=== PATIENT | male | born 1940 | race Caucasian/White ===

== ENCOUNTER 2020-10-19 14:50 | Outpatient (CLI) | payer MEDICARE, OTHER, SELFPAY | END 2020-10-19 14:51 | disposition home or self-care (01) | LOC: ANHCOVIDVC 14:50 | PROVIDERS: PCP Family Medicine | DX: Z23 Encounter for immunization (principal) | CPT/HCPCS: 0001A; 91300 ==

== ENCOUNTER → 2022-02-16 10:05 | Outpatient (CLI) | payer MEDICARE, SELFPAY ==
--- NOTE | ~2022-02-16 | XR_ITS ---
XR chest 2V 02/16/2022 10:27 Indication: Acute bronchitis Procedure: 2 view chest Comparison: No prior studies for comparison. Findings: There is subtle bilateral perihilar and bibasilar airspace disease. No significant effusion . Heart size normal. There is atherosclerosis. No pneumothorax identified. Impression: 1: Bilateral perihilar and bibasilar airspace disease which may represent edema or pneumonia. Reviewed, dictated and finalized at location A. Impression: 1: Bilateral perihilar and bibasilar airspace disease which may represent edema or pneumonia.
== END ==
PROVIDERS: PCP Family Medicine; Visit Provider Family Medicine
DX: J20.9 Acute bronchitis, unspecified (principal); R91.8 Other nonspecific abnormal finding of lung field
CPT/HCPCS: 71046

== ENCOUNTER 2023-10-29 10:57 | Emergency (ER) | payer MEDICARE, SELFPAY ==
[2023-10-29] VITALS (11 sets, daily range): BP systolic 119–144; BP diastolic 57–71; PULSE 76–80; RESP 16–20; TEMP 36.4–36.6; O2SAT 96–99
--- NOTE | ~2023-10-29 | XR_ITS ---
Clinical Indication: Cough PA and lateral views of the chest: Comparison: 02/16/2022 Findings: The lungs are clear, without evidence of focal consolidation or pleural effusion. Cardiome diastinal silhouette is within normal limits. Bones and soft tissues are unremarkable. Impression: Normal chest. Reviewed, dictated and finalized at location . Impression: Normal chest.
--- NOTE | ~2023-10-29 | CT_ITS ---
EXAMINATION: CT brain wo con DATE: 10/29/2023 13:57 INDICATION: Confusion. Weakness. TECHNIQUE: Computed tomography (CT) of the head was performed without intravenous contrast. The mA wa s adjusted according to patient size. Iterative reconstruction technique was employed. Exam dose: 75 6.67 mGy-cm total exam DLP. COMPARISON: None FINDINGS: There is central and cortical cerebral and cerebellar volume loss. No intracranial mass lesion or hemorrhage, cerebrovascular accident, midline shift or mass effect is noted. Bilateral vertebral artery calcifications. Prominent bilateral carotid siphon internal carotid artery calcifications. There is nonspecific diminished attenuation of the cerebral white matter, likely due to chronic small vessel ischemic changes. No subdural or epidural hematoma. Patchy soft tissue thickening the ethmoid air cells is noted bilaterally. The mastoid air cells are w ell-developed and aerated. No fracture or bone destruction of the cranial vault. IMPRESSION: Cerebral and cerebellar volume loss Cerebral atherosclerosis and chronic small vessel ischemic changes of the cerebral white matter No acute intracranial finding Reviewed, dictated and finalized at Location A. Reviewed, dictated and finalized at location B. IMPRESSION: Cerebral and cerebellar volume loss Cerebral atherosclerosis and chronic small vessel ischemic changes of the cereb ral white matter No acute intracranial finding
--- NOTE | 2023-10-29 11:04 | ECG_ITS ---
Measurements Intervals [place] Rate: 75 P: 38 MO: 170 QRS: -35 QRSD: 91 T: 74 QT: 360 QTc: 403 Interpretive Statements SINUS RHYTHM LEFT AXIS DEVIATION ANTEROSEPTAL INFARCT, AGE INDETERMINATE BORDERLINE ST-T WAVE ABNORMALITY- HIGH LATERAL LEADS BASELINE WANDER- II, III, AVR, AVL, AVF, V1-V2, V5-V6 ABNORMAL ECG NO PREVIOUS ECG AVAILABLE FOR COMPARISON Electronically Signed On 10-29-2023 13:27:43 CDT by Jon Arcos D.O.
[2023-10-29 11:39] LABS: Basophils Absolute Auto 0.1 K/mm3 (0.0-0.1); Basophils Percent Auto 0.8 % (0.2-1.2); Eosinophils Absolute Auto 0.3 K/mm3 (0-0.3); Eosinophils Percent Auto 4.1 % (0-4.4); Hematocrit 46.8 % (42.0-52.0); Hemoglobin 15.8 g/dL (14.0-18.0); Immature Granulocyte Absolute 0.03 K/mm3 (0.00-0.031); Immature Granulocyte Percent A 0.5 % (0-0.5); Lymphocytes Absolute Auto 1.29 K/mm3 (0.9-3.2); Lymphocytes Percent Auto 19.7 % (18.3-44.2); Mean Corpuscular HGB Conc 33.8 g/dl (32-36); Mean Corpuscular Hemoglobin 30.8 pg (26-34); Mean Corpuscular Volume 91.2 fl (80-100); Mean Platelet Volume 9.8 fl (7.4-10.4); Monocytes Absolute Auto 0.5 K/mm3 (0.1-0.6); Neutrophils Absolute Auto 4.4 K/mm3 (1.3-6.7); Neutrophils Percent Auto 66.9 % (45.5-73.1); Platelet Count Result 208 k/mm3 (150-375); Red Blood Count 5.13 M/mm3 (4.6-6.20); White Blood Count 6.5 K/mm3 (4.5-10.0)
--- NOTE | 2023-10-29 13:08 | ED.GENADULT ---
HPI - General Adult General Chief complaint: Shortness of Breath/Dyspnea <Kandice Marie December, [employer] - Last Filed: 10/29/23 13:19> Stated complaint: cough, wheezing, weakness <Kandice Marie December, ME[employer] - Last Filed: 10/29/23 13:19> Time Seen by Provider: 10/29/23 13:08 <Kandice Marie December, ME[employer] - Last Filed: 10/29/23 13:19> Focused HPI: Renard Monsalve is an 82 y/o male who presents with family. Family states that he was well in his normal state of health Sunday - he worked out at the gym with his . He went out to eat with family and started coughing a lot and then he became progressively weakened and needed help walking out of the restaurant. His states that over the weekend he has had worsening generalized weakness and coughing. also states she has noticed some intermittent confusion since about July is also wanting to make sure he doesn't have a pulmonary embolism GENERAL: well-nourished, and in no acute distress. HEAD: Normocephalic, atraumatic. CHEST: Clear to auscultation. ?No respiratory distress. HEART: Regular rate and rhythm.? NEURO: ?Alert and oriented x3. Patient screened in triage and initial orders placed.? ?Additional care and disposition to be based upon?diagnostic testing and treatment. <Kandice Marie December, ME[employer] - Last Filed: 10/29/23 13:19> History of Present Illness HPI narrative: Patient is an 82-year-old male who presents ER with shortness of breath. Intermittent for the last 3 months. Worsened over last 3 days after he opened a bag of fertilizer and spread across his yd. Nonproductive cough. Has some tightness related to this in his chest. No fevers or chills or sweats. <Júnior Ordaz MD - Last Filed: 10/29/23 18:31> Related Data Allergies/adverse reactions: Allergies Allergy/AdvReac Type Severity Reaction Status Date / Time No Known Allergies Allergy Verified 10/29/23 15:50 <Kandice Marie December, ME[employer] - Last Filed: 10/29/23 13:19> Review of Systems Review of Systems: All systems reviewed & are unremarkable except as noted in HPI and below <Júnior Ordaz MD - Last Filed: 10/29/23 18:31> Constitutional: Constitutional: Denies chills, Denies fever(s) and Denies frequent falls <Júnior Ordaz MD - Last Filed: 10/29/23 18:31> ENT: Reports system reviewed and no additional complaints, except as documented <Júnior Ordaz MD - Last Filed: 10/29/23 18:31> Cardiovascular: Cardiovascular: Reports no additional cardiovascular complaints <Júnior Ordaz MD - Last Filed: 10/29/23 18:31> Respiratory: Respiratory: Denies chest congestion, Reports cough, Reports dyspnea and Reports wheezing <Júnior Ordaz MD - Last Filed: 10/29/23 18:31> Gastrointestinal: Gastrointestinal: Reports no additional gastrointestinal complaints <Júnior Ordaz MD - Last Filed: 10/29/23 18:31> Musculoskeletal: Musculoskeletal: Reports no additional musculoskeletal complaints <Júnior Ordaz MD - Last Filed: 10/29/23 18:31> [facility] Past Medical History Medical History: Medical History (Updated 10/29/23 @ 18:23 by Júnior Ordaz MD) Abnormal fasting glucose glucose 90 with hemoglobin A1c 5.3 on 10/13/2020. The patient's fasting glucose was 99 with hemoglobin A1c 5.3 on 02/01/2022. 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 Recheck in 3 years. COVID (02/11/22) Evaluated in the ER on 02/17/2022 with pneumonia and positive COVID test. Treated with doxycycline. Gastro-esophageal reflux disease without esophagitis Obesity (BMI 30.0-34.9) Obstructive sleep apnea Pharyngitis (02/10/22) Two COVID test were negative. <Kandice Aviles APRN - Last Filed: 10/29/23 13:19> Family History Family History: Family History (Updated
[2023-10-29 13:52] LABS: Influenza A QL RT-PCR Negative (Negative); Influenza B QL RT-PCR Negative (Negative); RSV RNA, RT-PCR Negative (Negative); SARS-CoV-2 RNA PCR Negative (Negative)
[2023-10-29] MEDS: ALBUTEROL SULFATE NEB 2.5 MG/3 ML INH 15 MG INHALATION (16:15)
[2023-10-29] MEDS: IPRATROPIUM BR 0.02% INH SOLN 0.5 MG/2.5 ML VIAL 1.5 MG INHALATION (16:15)
[2023-10-29 16:20] LABS: D Dimer 0.42 ug/mL (<0.48)
[2023-10-29 16:26] LABS: Troponin I < 0.012 ng/mL (0.000-0.034)
[2023-10-29 16:30] LABS: Alanine Aminotransferase 21 U/L (6-50); Albumin Level 4.2 g/dL (3.5-5.1); Alkaline Phosphatase 77 U/L (38-126); Anion Gap 4 mmol/L (8-16); Aspartate Amino Transferase 46 U/L (17-59); Bilirubin,Total 0.8 mg/dL (0.2-1.3); Blood Urea Nitrogen 18 mg/dL (9-20); Calcium 9.2 mg/dL (8.4-10.2); Carbon Dioxide 30 mmol/L (22-30); Chloride 102 mmol/L (98-107); Estimated CRCL calculation 61 ml/min; Estimated Glomerular Filt Rate > 60; Glucose 98 mg/dL (65-110); Potassium 5.6 mmol/L (3.4-5.0); Sodium 136 mmol/L (137-145)
== END 2023-10-29 19:10 | disposition home or self-care (01) ==
PROVIDERS: Nurse Practitioner Family; Emergency Provider Emergency Medicine; PCP Family Medicine
DX: J40 Bronchitis, not specified as acute or chronic (principal); Z20.822 Contact with and (suspected) exposure to COVID-19; K21.9 Gastro-esophageal reflux disease without esophagitis; G47.33 Obstructive sleep apnea (adult) (pediatric); E66.9 Obesity, unspecified; Z68.28 Body mass index [BMI] 28.0-28.9, adult; Z86.16 Personal history of COVID-19; I67.2 Cerebral atherosclerosis
CPT/HCPCS: 36415; 70450; 71046; 80053; 84484; 85025; 85380; 87637; 93005; 94640; 99284

== ENCOUNTER 2024-08-01 13:37 | Emergency (ER) | payer MEDICARE, SELFPAY ==
--- NOTE | ~2024-08-01 | XR_ITS ---
EXAMINATION: XR chest 2V DATE: 08/01/2024 15:14 INDICATION: Cough and shortness of breath TECHNIQUE: PA and lateral views of the chest were obtained. COMPARISON: Chest radiograph dated 10/29/2023 FINDINGS: Calcified nodule projecting over the right lung base consistent with old granulomatous disease. No fo jenny airspace opacities, pulmonary edema, pleural effusion or pneumothorax. The cardiomediastinal silh ouette is normal. Mild to moderate thoracic spondylosis with bridging osteophytes at multiple levels consistent with diffuse idiopathic skeletal hyperostosis (DISH). IMPRESSION: 1. No acute cardiopulmonary disease. Reviewed, dictated and finalized at location A. [facility]
[2024-08-01 13:59] VITALS: BP 136/69; PULSE 82; RESP 20; TEMP 36.3; O2SAT 98
--- NOTE | 2024-08-01 15:03 | ED_ITS ---
HPI - URI/Sore Throat General Chief Complaint: Upper Respiratory Infection Stated Complaint: Chest Congestion and Sinus Infection Time Seen by Provider: 08/01/24 14:55 Source: patient, family ( and granddaughter) and RN notes reviewed Mode of arrival: ambulatory Limitations: no limitations History of Present Illness HPI Narrative: Patient presents today with and granddaughter complaining of 4 day history of cough, rhinorrhea, fatigue, nasal congestion, weakness and shortness of breath. He did have a fever the 1st 2 days of illness, but this has since resolved. He has tried Mucinex and Tylenol with mild relief. Granddaughter reports that patient has had multiple chest infections since having COVID in 2021. He is also noncompliant with his CPAP at night for sleep apnea. Patient also has normal pressure hydrocephalus and had fluid drained a few months ago. Related Data Allergies Allergy/AdvReac Type Severity Reaction Status Date / Time No Known Allergies Allergy Verified 08/01/24 13:55 Review of Systems Review of Systems: CONSTITUTIONAL: Denies body aches, fever, chills, or sweats.+ fatigue, weakness EYES: Denies visual changes, redness, or discharge. ENT: Denies sore throat, or otalgia.+ rhinorrhea, congestion CARDIOVASCULAR: Denies chest pain, palpitations, or edema. RESPIRATORY: + cough, shortness of breath. GASTROINTESTINAL: Denies abdominal pain, nausea, vomiting, or diarrhea. GENITOURINARY: Denies dysuria or hematuria. SKIN: Denies rash, itching, or wounds. MUSCULOSKELETAL: Denies back pain, joint pain, or myalgia. NEUROLOGIC: Denies headache, numbness, tingling PSYCH: Denies depression or anxiety. [facility] Past Medical History Medical History COVID (02/11/22) Evaluated in the ER on 02/17/2022 with pneumonia and positive COVID test. Treated with doxycycline. Acute bronchitis (~02/11/22) Pharyngitis (02/10/22) Two COVID test were negative. BMI 31.0-31.9,adult Obesity (BMI 30.0-34.9) Colon cancer screening the patient's Cologuard screening from 08/17/2021 was negative. Recheck in 3 years. Actinic keratosis BMI 32.0-32.9,adult Chronic low back pain with right-sided sciatica Abnormal fasting glucose glucose 90 with hemoglobin A1c 5.3 on 10/13/2020. The patient's fasting glucose was 99 with hemoglobin A1c 5.3 on 02/01/2022. Gastro-esophageal reflux disease without esophagitis Obstructive sleep apnea Chronic bilateral low back pain without sciatica Family History Family History Mother Patient's mother is , Onset Age: 91 Father Family history of malignant neoplasm, Onset Age: 53 Sibling Family history of malignant neoplasm, Onset Age: 39 Family history of Hodgkin's lymphoma, Onset Age: 63 Social History Social History Smoking status: Never smoker Alcohol intake: never Substance use: never Substance use type: does not use Comments At time of signature, I have reviewed and agree with nursing past medical, surgical, social and family history unless otherwise noted. Please see nursing chart for further information. There is no relevant family history pertinent to the presenting complaint Exam Narrative: GENERAL: ill-appearing, well-nourished, and in no acute distress. HEAD: Normocephalic, atraumatic. EYES: EOMI. No redness or drainage. Conjunctivae normal. ENT: Mucous membranes pink and moist. Nares clear. No rhinorrhea. TMs normal bilaterally. Throat normal. Uvula midline. NECK: Normal AROM. Supple. No lymphadenopathy. CHEST: No respiratory distress. Clear to auscultation. HEART: Regular rate and rhythm. No murmur appreciated. EXTREMITIES: Normal range of motion. No edema. SKIN: Warm, dry, no rash. Capillary refill normal. Normal skin turgor. NEURO: No focal deficits. Alert and oriented x3. Gait steady. PSYCH: Normal affect. No signs of depression or anxiety. Course Course Level of Care: Express Care Visit Vital Signs Vital signs: Vital Signs Temperature 97.3 F L 08/01/24 13:59 Pulse Rate 82 08/01/24 13:59 Respiratory Rate 20 08/01/24 13:59 Blood Pressure 136/69 08/01/24 13:59 Pulse Oximetry 98 08/01/24 13:59 Oxygen Delivery Room Air 08/01/24 13:59 Temperature 97.3 F L 08/01/24 13:59 Pulse Rate 82 08/01/24 13:59 Respiratory Rate 20 08/01/24 13:59 Blood Pressure 136/69 08/01/24 13:59 Pulse Oximetry 98 08/01/24 13:59 Oxygen Delivery Room Air 08/01/24 13:59 Reviewed MDM - URI/Sore Throat MDM Narrative Medical decision making narrative: Influenza negative. Chest x-ray negative. COVID positive. Based on contraindications, patient's tamsulosin interacts with Paxlovid and is not recommended to take together. Discussed this with family and patient, including granddaughter who is a pharmacist. She states that it will be safe for patient and she will take this responsibility. Patient a case plan. Prescriptions sent. Anticipatory guidance given. ED precautions given. Differential Diagnosis Differential diagnosis: Likely upper respiratory infection, viral infection, influenza and other (COVID-19, pneumonia, hypercarbia) Lab Data Attestation: I reviewed the patient's lab results. Labs: Lab Results 08/01/24 08/01/24 Range/Units 15:08 15:23 POC Influenza A Ag Negative (Negative) POC Influenza B Ag Negative (Negative) POC SARS CoV-2 Ag Positive (Negative) Imaging Data Radiologist's impression: ITS Impressions Chest X-Ray 08/01/24 15:25 IMPRESSION: 1. No acute cardiopulmonary disease. Critical Care Time Critical Care Time Critical Care Time: No Discharge Plan Discharge Clinical Impression: COVID-19 Patient Disposition: Home, Self-Care Condition: Stable Instructions: COVID-19 (Coronavirus Disease 2019) (ED) Additional Instructions: You have tested positive for COVID-19 today. Please continue the Mucinex and Tylenol as needed. Rest and stay hydrated. Your chest x-ray is negative for pneumonia. Please use your CPAP at all times when sleeping. If you start feeling worse or more weak, or become more short of breath, please go to the emergency room for further evaluation. Your blood pressure was elevated above 120/80 today at Urgent Care. This puts you above the threshold for follow up. Please schedule a followup visit with your personal physician as soon as possible, for further evaluation and treatment. Even blood pressure exceeding 120/80 may indicate pre-hypertension. Patient Language: Singaporean Prescriptions: New Paxlovid 300 mg (150 mg x 2)-100 mg tablets,dose pack See Rx Instructions .ROUTE .COMPLEX Qty: 30 0RF Rx Instructions: take TWO 150 mg tablets of nirmatrelvir with ONE 100 mg tablet of ritonavir twice daily for 5 days No Action finasteride 5 mg tablet 5 mg PO DAILY Qty: 90 3RF tamsulosin 0.4 mg capsule 0.4 mg PO DAILY Qty: 90 3RF duloxetine [Cymbalta] 30 mg capsule,delayed release(DR/EC) 30 mg PO DAILY Qty: 90 3RF Follow-up/Referrals: Tj,Luan Person MD [Primary Care Provider] - Time of Disposition: 15:39
[2024-08-01 15:11] LABS: EDCOVIDSCREEN Positive (Negative)
[2024-08-01 15:25] LABS: EDINFLUASCREEN Negative (Negative); EDINFLUBSCREEN Negative (Negative)
== END 2024-08-01 15:53 | disposition home or self-care (01) ==
PROVIDERS: Emergency Provider Nurse Practitioner; PCP Family Medicine
DX: U07.1 COVID-19 (principal); G91.9 Hydrocephalus, unspecified; K21.9 Gastro-esophageal reflux disease without esophagitis; E66.9 Obesity, unspecified; Z68.28 Body mass index [BMI] 28.0-28.9, adult; G47.33 Obstructive sleep apnea (adult) (pediatric); Z91.199 Patient's noncompliance with other medical treatment and regimen due to unspecified reason
CPT/HCPCS: 71046; 87426; 87804; 99213; G0463